=== PATIENT | female | born 1975 | race Caucasian/White ===

== ENCOUNTER 2017-08-04 15:49 | Outpatient (CLI) | payer OTHER ==
[2017-08-04 16:04] LABS: BASOPHILS % 0.5 (0.0-1.5); EOSINOPHILS % 2.4 % (0.0-6.8); MEAN CORPUSCULAR HEMOGLOBIN 29.4 pg (28.0-34.0); MEAN CORPUSCULAR VOLUME 84.3 fl (80.0-100.0); MONOCYTES % 3.2 % (0.0-11.0); NEUTROPHILS # 6.4 # k/uL (1.4-7.7)
[2017-08-04 16:29] LABS: eGFR (African) > 60; eGFR (Non-African) > 60
== END 2017-08-04 15:50 ==
LOC: LAB 15:49
PROVIDERS: ATTEND Physician Assistant
DX: M25.541 Pain in joints of right hand (principal); M25.542 Pain in joints of left hand; R53.83 Other fatigue
CPT/HCPCS: 36415; 80053; 85025; 85651; 86038; 86431

== ENCOUNTER 2018-12-10 18:51 | Emergency (ER) | payer OTHER ==
[2018-12-10 19:30] VITALS: BP 142/92
[2018-12-10] MEDS ORDERED: LIDOCAINE HCL 1% PF 50MG/5ML AMP (IM/SUTURE/PAIN CLINIC) IVP ONE (19:37)
[2018-12-10] MEDS ORDERED: cefTRIAXone SODIUM 1 GM INJ IM ONE (19:37)
--- NOTE | 2018-12-10 19:37 | ED Physician Documentation ---
Upper Respiratory Symptoms - HPI Stated Complaint: "My rt ear hurts and I have a cough that I have had for 3 weeks" Chief Complaint: Cough/ Upper Respiratory Additional Information: Patient presents with a 3 week history of cough, nasal congestion and sore throat. Right ear pain began yesterday, worse today. Patient denies fever or chills. She is on MTX and plaquenil for RA. Onset: days ago (21) Duration: intermittent episodes Context: denies: recent foreign travel Associated Symptoms: earache (right), runny nose, sinus pain, sinus drainage, sore throat, productive cough. denies: shortness of breath - ROS CONST/EYES: denies: weakness CVS/RESP: denies: chest pain, shortness of breath LYMPH: denies: rash GI/: denies: vomiting, nausea NEURO/PSYCH: denies: dizziness MS/SKIN: denies: muscle aches - PAST HX Lung Disease: none Surgeries/Procedures: none Allergies/Adverse Reactions: Allergies Allergy/AdvReac Type Severity Reaction Status Date / Time Sulfa (Sulfonamide Allergy Unverified 02/28/17 14:29 Antibiotics) Home Medications: Ambulatory Orders Medication Instructions Recorded Cetirizine HCl [Zyrtec] 10 mg PO DAILY av 02/28/17 Hydroxychloroquine Sulfate 200 mg PO BID u2 07/10/18 Methotrexate/Pf [Rasuvo 20 Mg/0.4 20 mg SQ weekly 07/10/18 Ml Autoinj] Cefdinir [Omnicef] 300 mg PO BID #20 capsule 12/10/18 - SOCIAL HX Smoking History: non-smoker Alcohol Use: none Drug Use: none - FAMILY HX Family History: none - VITAL SIGNS Vital Signs: Vital Signs Temp Pulse Resp BP Pulse Ox 98.8 F 89 16 142/92 99 12/10/18 19:25 12/10/18 19:25 12/10/18 19:25 12/10/18 19:25 12/10/18 19:25 - REVIEWED ASSESSMENTS Nursing Assessment Reviewed: Yes Vitals Reviewed: Yes ED Results Lab/Radiology - Orders Orders: ED Orders Category Date Time Status Lidocaine 1% 5ml(IM or SUTURE) [Xylocaine] Med 12/10/18 19:37 Once 5 mg IVP NOW ONE cefTRIAXone SODIUM [Rocephin] Med 12/10/18 19:37 Once 1 gm IM NOW ONE Upper Respiratory Symptoms - EXAM General Appearance: no acute distress, alert EENT: TM erythema (right), pharyngeal erythema (posterior, cobblestone appearance) Neck: supple Respiratory: no resp. distress, breath sounds nml Abdomen: non-tender, nml bowel sounds CVS: reg rate & rhythm, heart sounds normal Skin: color nml, no rash, warm,dry Extremities: no edema Neuro/Psych: oriented x3, mood/affect nml Discharge Clincal Impression: Sinusitis Qualifiers: Sinusitis location: pansinusitis Chronicity: acute Recurrence: non-recurrent Qualified Code(s): J01.40 - Acute pansinusitis, unspecified Prescriptions: Cefdinir [Omnicef] 300 mg PO BID #20 capsule Referrals: Primary Doctor,No [Primary Care Provider] - 2 Days Condition: Stable Disposition: 01 HOME, SELF-CARE Decision to Admit: NO Date of Decison to Admit: 12/10/18 Decision Time: 19:49
[2018-12-10] MEDS ORDERED: LIDOCAINE HCL 1% PF 300MG/30ML VIAL ONE (19:59)
== END 2018-12-10 20:20 | disposition home or self-care (01) ==
LOC: ED 18:51
DX: J01.40 Acute pansinusitis, unspecified (principal)
CPT/HCPCS: 96372; 96374; 99283; 99284; J0696